=== PATIENT | female | born 1960 | race Hispanic/Latino ===

== ENCOUNTER 2017-05-25 14:18 | Outpatient (CLI) | payer SELFPAY ==
--- NOTE | 2017-05-27 15:53 | MMO ---
BILATERAL SCREENING MAMMOGRAMS: Date: 05/25/17 Comparison made to prior exams from [facility] dated 2016 and 2016. This patient's mammogram was interpreted with the assistance of computer-aided detection. FINDINGS: Scattered fibroglandular densities. Scattered benign-appearing calcifications appear stable. No mass or distortion. No interval change identified. Recommend one year follow-up. IMPRESSION: BIRADS 2: Benign Finding(s) POS: [facility]
== END 2017-05-25 14:19 | disposition home or self-care (01) ==
LOC: SCSMAMMO 14:18
PROVIDERS: ATTEND Nurse Practitioner Family
DX: Z12.31 Encounter for screening mammogram for malignant neoplasm of breast (principal)
CPT/HCPCS: 77067

== ENCOUNTER 2017-07-03 15:18 | Emergency (ER) | payer SELFPAY ==
--- NOTE | 2017-07-03 16:14 | RAD ---
TWO VIEWS OF THE RIGHT TIBIA AND FIBULA: 07/03/17 HISTORY: Slip and fall in [facility] with right leg pain. FINDINGS: Two views right tibia/fibula shows no evidence of acute fracture or dislocation. Mild diffuse soft ti ssue swelling. There appear to be a few phleboliths in the pretibial soft tissues. Degenerative sandra es are seen in the knee. IMPRESSION: No evidence of acute osseous abnormality. POS: [facility]
--- NOTE | 2017-07-03 16:17 | RAD ---
SINGLE VIEW OF THE PELVIS: 07/03/17 COMPARISON: None. HISTORY: Mechanical slip and fall at [facility] with pelvic pain. FINDINGS: Single view of the pelvis shows no evidence of acute fracture or dislocation. No degenerative changes are seen in either hip. No focal soft tissue swelling is seen. IMPRESSION: Unremarkable exam. POS: [facility]
== END 2017-07-03 16:17 | disposition home or self-care (01) ==
LOC: ERS 15:18
DX: S80.11XA Contusion of right lower leg, initial encounter (principal); E03.9 Hypothyroidism, unspecified; E78.5 Hyperlipidemia, unspecified; I10 Essential (primary) hypertension; W01.0XXA Fall on same level from slipping, tripping and stumbling without subsequent striking against object, initial encounter
CPT/HCPCS: 72170

== ENCOUNTER 2018-05-19 01:20 | Emergency (ER) | payer SELFPAY ==
[2018-05-19 01:52] LABS: Hemoglobin 13.8 g/dL (12.0-16.0); Mean Corpuscular HGB CONC 32.8 g/dL (32.0-36.0); Mean Corpuscular Hemoglobin 32.2 pg (27.0-31.0); Mean Platelet Volume 7.7 fL (7.4-10.4); Platelet Count 186 thou/uL (130-400); Red Blood Cell (RBC) Count 4.28 mill/uL (4.20-5.40); White Blood Cell (WBC) Count 6.4 thou/uL (4.8-10.8)
[2018-05-19 02:12] LABS: ALT (SGPT) 13 U/L (8-55); AST (SGOT) 18 U/L (5-34); Alkaline Phosphatase 81 U/L (40-150); Anion Gap 12 mmol/L (10-20); BUN (Urea Nitrogen) 17 mg/dL (9.8-20.1); Bilirubin, Total 0.5 mg/dL (0.2-1.2); CK (CPK) 57 U/L (29-168); Calc. Creatinine Clearance 0 mL/min (70-130); Calcium 10.5 mg/dL (7.8-10.44); Carbon Dioxide 25 mmol/L (22-29); Chloride 107 mmol/L (98-107); Estimated GFR-MDRD 79; Globulin 3.1 g/dL (2.4-3.5); Glucose 106 mg/dL (70-105); Lymphocytes 47 % (21-51); MDiff Complete? YES; Neutrophil 40 % (42-75); Platelet Morphology Comment Appears Adequate; Potassium 3.3 mmol/L (3.5-5.1); Protein, Total 7.1 g/dL (6.0-8.3); RBC Morphology Normal; Reactive Lymphocytes 13 % (0-10); Sodium 141 mmol/L (136-145)
[2018-05-19] MEDS ORDERED: Lidocaine Viscous Sol 2% 15 ml UD Cup ONE ×2 (03:12→05:44)
[2018-05-19] MEDS ORDERED: Mag-Al 1200 mg/1200 mg/30 ML UDCUP ONE ×2 (03:12→05:44)
--- NOTE | 2018-05-19 07:19 | RAD ---
CHEST ONE VIEW: Indication: Chest pain. Comparison: 04-13-10 FINDINGS: Gas with the stomach bubble underlies the left hemidiaphragm. Lungs are clear. Heart size is within n ormal limits. No pleural effusion or pneumothorax is evident. No acute osseous abnormality is evident . IMPRESSION: No acute abnormality. POS: [facility]
== END 2018-05-19 05:52 | disposition home or self-care (01) ==
LOC: ERS 01:20
DX: K21.9 Gastro-esophageal reflux disease without esophagitis (principal); E03.9 Hypothyroidism, unspecified; E78.5 Hyperlipidemia, unspecified; I10 Essential (primary) hypertension
CPT/HCPCS: 36415; 71045; 80053; 82550; 83690; 83880; 84484; 85025; 93005; 94760

== ENCOUNTER 2024-01-27 10:33 | Outpatient (CLI) | payer MEDICARE | END 2024-01-27 10:34 | disposition home or self-care (01) | LOC: BICMAMMO 10:33 | PROVIDERS: ATTEND Nurse Practitioner Family | DX: Z12.31 Encounter for screening mammogram for malignant neoplasm of breast (principal) | CPT/HCPCS: 77063; 77067 ==

== ENCOUNTER 2024-11-16 12:19 | Emergency (ER) | payer MEDICARE ==
[2024-11-16 13:19] LABS: #Basophils Less than 0.03 10x3/uL (0.0-0.2); #Eosinophils Less than 0.03 10x3/uL (0.0-0.7); #Monocytes 0.09 10x3/uL (0.11-0.59); #Neutrophils 5.05 10x3/uL (1.40-6.50); %Basophils 0.3 % (0.0-1.0); %Eosinophils 0.0 % (0.0-10.0); %Lymphocytes 18.8 % (21.0-51.0); %Monocytes 1.4 % (0.0-10.0); %Neutrophils 79.2 % (42.0-75.0); Hematocrit 41.2 % (36.0-47.0); Hemoglobin 13.9 g/dL (12.0-16.0); Mean Corpuscular Hemoglobin 31.3 pg (27.0-31.0); Mean Corpuscular Volume 92.8 fL (78.0-98.0); Platelet Count 173 10x3/uL (130-400); Red Blood Cell (RBC) Count 4.44 mill/uL (4.20-5.40); White Blood Cell (WBC) Count 6.38 10x3/uL (4.8-10.8)
[2024-11-16] MEDS ORDERED: Ondansetron PF 4 MG/2 ML Vial ONE (13:32)
[2024-11-16 13:37] LABS: ALT (SGPT) 20 U/L (Less than 34); AST (SGOT) 24 U/L (11-34); Albumin 4.0 g/dL (3.1-4.5); Alkaline Phosphatase 77 U/L (40-110); Anion Gap 13 mmol/L (10-20); BUN (Urea Nitrogen) 16 mg/dL (9.8-20.1); Bilirubin, Total 0.6 mg/dL (0.3-1.2); Calc. Creatinine Clearance 0 mL/min (70-130); Calcium 10.1 mg/dL (7.8-10.44); Carbon Dioxide 27 mmol/L (23-31); Chloride 106 mmol/L (98-107); Globulin 3.5 g/dL (2.4-3.5); Glucose 186 mg/dL (80-115); Lipase 18 U/L (8-78); Potassium 3.5 mmol/L (3.5-5.1); Sodium 142 mmol/L (136-145)
[2024-11-16 15:22] LABS: Bacteria/HPF None Seen HPF (None Seen); CAUTI Indications for Culture Alt mental st,lethar; Glucose, Urine (Dipstick) Normal (Negative); Leukocyte Negative Leu/uL (Negative); Protein, Urine (Dipstick) Negative (Neg-Trace); RBC/HPF 0-3 HPF (0-3); Specific Gravity, Urine Greater than 1.050 (1.002-1.036); WBC/HPF 0-3 HPF (0-3)
[2024-11-16 15:23] LABS: Urine Culture Reflex No No
== END 2024-11-16 16:35 | disposition home or self-care (01) ==
LOC: ERS 12:19
DX: K52.9 Noninfective gastroenteritis and colitis, unspecified (principal); K59.00 Constipation, unspecified; I10 Essential (primary) hypertension; R29.700 NIHSS score 0
CPT/HCPCS: 70450; 71045; 74177; 80053; 81001; 83690; 84484; 85025; 93005; J2405; 96361; 96374